=== PATIENT | female | born 1945 | race Caucasian/White ===

== ENCOUNTER → 2019-02-21 16:41 | Outpatient (CLI) | payer MEDICARE, OTHER, SELFPAY ==
--- NOTE | 2019-02-21 14:45 | CYSPIN_PTH ---
PATIENT: SHARITA BARFIELD LOC: [facility] U#:[id number] AGE/SX: 79/F ROOM: RE02/21/[address]: Dr. Ernesto Caicedo MD : 1945 BED: DIS: SPEC #: [id number] RECD: 02/22/19 10:50 STATUS: RANJITH DAIANA #: [id number] MIGUEL ANGEL: 02/21/19 14:[address]: Ernesot Caicedo DEPT: CYTOLOGY RECD BY: Hair Brown Tissues: Urine Procedures: Pap Stain (control) Special Stain Group II Cytospin Fluid HEADER OPERATION: Not noted PRE-OP DIAGNOSIS: R82.998 TISSUE SUBMITTED: Urine for cytology DIAGNOSIS CYTOLOGY Urine for cytology (cytospin): Negative for malignant cells. AM:javier 02/25/19 CYTOLOGY STUDY Slides are reviewed. CYTOLOGY GROSS Received is 60 ml of yellow cloudy fluid labeled with the patient's name and and designated per the requisition as urine. Submitted for cytology preparation. 02/22/19 TC:5 CPT: 25236
[2019-02-21 17:10] LABS: Cytology, Body Fluid / CSF SEE PATHOLOGY REPORT
== END ==
PROVIDERS: Family Provider Family Medicine; PCP Family Medicine; Referring Provider Family Medicine; Visit Provider Family Medicine
DX: R82.998 Other abnormal findings in urine (principal)
CPT/HCPCS: 88108; 88313